=== PATIENT | male | born 1965 | race Two or more races ===

== ENCOUNTER 2020-06-19 14:32 | Emergency (ER) | payer OTHER ==
[~2020-06-19] VITALS: Ht 170.2 cm; Wt 77.1 kg
[2020-06-19] MEDS ORDERED: HYDRALAZINE HCL25 MG (15:12)
[2020-06-19] MEDS ORDERED: NORVASC5 MG (15:12)
== END 2020-06-19 20:43 | disposition home or self-care (01) ==
LOC: ER 14:32
DX: S93.491A Sprain of other ligament of right ankle, initial encounter (principal); S90.32XA Contusion of left foot, initial encounter; M54.5 Low back pain; W17.89XA Other fall from one level to another, initial encounter; Y93.89 Activity, other specified; Y92.89 Other specified places as the place of occurrence of the external cause; Y99.8 Other external cause status